=== PATIENT | male | born 1935 | race Caucasian/White ===

== ENCOUNTER 2020-06-23 14:51 | Outpatient (CLI) | payer MEDICARE, SELFPAY ==
--- NOTE | 2020-06-28 21:36 | WPDPFTINT ---
PFT Interpretation PFT Interpretation: DOS: 06/23/2020 REQUESTING: Dr. Jacob REASON FOR TESTING: Amiodarone use PULMONARY FUNCTION TESTS Results are not reproducible; patient did provide good effort however was not able to exhale 3 times for 6 seconds. Spirometry: FEV1 is 84%, normal. FVC 70%, mildly decreased. FEV1% is normal. No bronchodilator was given. Lung volumes: TLC 80%, lower limit of normal. There is no restriction, however this is the lowest normal value for total lung capacity. RV is normal, and RV/TLC is normal, indicating absence of air trapping. Airway resistance is increased 189%. Diffusion: DLCO Normal 96%. Flow volume loop: Not reproducible. IMPRESSION: Normal spirometry, lung volumes and diffusion. There does not appear to be any pulmonary deficit from using amiodarone. No prior studies are available for comparison. Yaritza Workman MD
== END 2020-06-23 14:52 | disposition home or self-care (01) ==
PROVIDERS: PCP Family Medicine Adolescent Medicine; Visit Provider Internal Medicine Cardiovascular Disease
DX: Z79.899 Other long term (current) drug therapy (principal)
CPT/HCPCS: 94375; 94726; 94729

== ENCOUNTER 2020-06-30 14:37 | Outpatient (CLI) | payer MEDICARE, SELFPAY ==
--- NOTE | ~2020-06-30 | XR_ITS ---
XR chest 2V DATE: 06/30/2020 15:20 INDICATION: Long-term amiodarone use TECHNIQUE: PA and lateral views COMPARISON: 11/22/2018 CT chest abdomen pelvis FINDINGS: Normal heart size. Aortic calcification. No hilar or mediastinal enlargement. No pulmona ry infiltrate or consolidation, pulmonary vascular congestion or pleural effusion or pneumothorax. IMPRESSION: No active cardiopulmonary disease Aortic calcification Reviewed, dictated and finalized at location A.
[2020-06-30 15:38] LABS: Alanine Aminotransferase 18 U/L (4-50); Albumin Level 4.5 g/dL (3.5-5.1); Alkaline Phosphatase 47 U/L (38-126); Anion Gap 12 mmol/L (8-16); Aspartate Amino Transferase 24 U/L (17-59); Blood Urea Nitrogen 16 mg/dL (9-20); Calcium 9.1 mg/dL (8.4-10.2); Carbon Dioxide 26 mmol/L (22-30); Chloride 100 mmol/L (98-107); Estimated Glomerular Filt Rate 49; Glucose 189 mg/dL (75-110); Potassium 3.5 mmol/L (3.4-5.0); Sodium 138 mmol/L (137-145)
[2020-06-30 16:44] LABS: Free T4 Free Thyroxine 1.11 ng/mL (0.78-2.19)
== END 2020-06-30 14:38 | disposition home or self-care (01) ==
PROVIDERS: PCP Family Medicine Adolescent Medicine; Visit Provider Internal Medicine Cardiovascular Disease
DX: Z79.899 Other long term (current) drug therapy (principal); I70.0 Atherosclerosis of aorta
CPT/HCPCS: 36415; 71046; 80053; 84439; 84443

== ENCOUNTER 2020-09-09 11:34 | Outpatient (CLI) | payer MEDICARE, SELFPAY ==
--- NOTE | ~2020-09-09 | XR_ITS ---
EXAMINATION: XR chest 2V DATE: 09/09/2020 11:55 INDICATION: Dysphonia. TECHNIQUE: Frontal and lateral views of the chest were obtained. COMPARISON: Chest 2 views 06/30/2020, chest CT 11/22/2018 FINDINGS: There is mild scarring at the lung apices. There are lucencies at the lung apices, consiste nt with emphysema. There is mild atelectasis in the lower lung zones. No pleural effusion or pneumoth orax. The heart size is normal. Calcified left hilar lymph nodes are consistent with old granulomatou s disease. Surgical clips in the right upper quadrant are likely from cholecystectomy. There is mild chronic anterior wedging of multiple thoracic vertebral bodies. IMPRESSION: 1. Mild scarring at the lung apices and mild atelectasis in the lower lung zones. 2. Emphysema. Reviewed, dictated and finalized at location A. IFIED HYPERBARIC TECHNICIAN IMPRESSION: 1. Mild scarring at the lung apices and mild atelectasis in the lower lung zone s. 2. Emphysema.
== END 2020-09-09 11:35 | disposition home or self-care (01) ==
LOC: ANHIMG 11:40
PROVIDERS: PCP Family Medicine Adolescent Medicine; Visit Provider Otolaryngology
DX: R49.0 Dysphonia (principal); J43.9 Emphysema, unspecified
CPT/HCPCS: 71046

== ENCOUNTER 2020-10-02 01:19 | Outpatient (CLI) | payer MEDICARE, SELFPAY ==
[2020-10-02 20:16] LABS: SARS-CoV-2 RNA PCR Negative
== END 2020-10-02 01:20 | disposition home or self-care (01) ==
LOC: ANHCOVIDDT 01:19
PROVIDERS: PCP Family Medicine Adolescent Medicine; Visit Provider Otolaryngology
DX: Z01.818 Encounter for other preprocedural examination (principal); Z20.828 Contact with and (suspected) exposure to other viral communicable diseases
CPT/HCPCS: 87635; C9803; U0003

== ENCOUNTER 2020-10-02 09:56 | Emergency (ER) | payer MEDICARE, SELFPAY ==
--- NOTE | ~2020-10-02 | CT_ITS ---
EXAMINATION: CT soft tissue neck chest w DATE: 10/02/2020 12:23 INDICATION: Pneumonia presenting with wheezing and hoarseness TECHNIQUE: Computed tomography (CT) of the neck and chest was performed with 75 mL Omnipaque-350 intr avenous contrast. Automated exposure control and iterative reconstruction technique were employed. Th e dose-length product was 1187.57 mGy-cm. COMPARISON: CT chest dated 11/22/2018 FINDINGS: Neck: Thyroid gland is normal. Submandibular and parotid glands are normal and symmetric. There are scatte red normal-sized lymph nodes in the neck, no lymphadenopathy. No masses identified. The vasculature is patent and normal in caliber. Airway is unremarkable. Normal epiglottis and parapharyngeal soft tissues. Changes of bilateral intraocular lens replacement. Orbits are unremarkable. Visualized sinu ses and mastoid aircells are well aerated. Severe cervical spondylosis. Chest: Mild paraseptal predominant emphysema with upper lung predominance. Biapical pleural-parenchymal scar ring. Mild dependent atelectasis in the lower lobes. Calcified bilateral lower lobe nodules and calci fied left hilar lymph nodes consistent with old granulomatous disease. No pneumonia, pulmonary edema, pleural effusion or pneumothorax. Heart size is normal. Atherosclerotic coronary artery calcific faraz cification is. Aortic valve and mitral annular calcification. No pericardial effusion. Thoracic aorta is normal in caliber with no dissection. No pathologically enlarged thoracic or upper abdominal lymp hadenopathy. Cholecystectomy clips at the gallbladder fossa. A couple ill-defined approximately 1 cm hyperenhancing lesions in segment 6 of the liver. These are not significantly changed since CT abdome n dated 09/28/2018 which would favor a benign etiology most likely flash filling hemangioma. Splenic c alcifications consistent with old granulomatous disease. A couple right renal cysts the larger measur ing 1.3 cm. Small sliding-type hiatal hernia. Moderate thoracic spondylosis. IMPRESSION: 1. Mild emphysema. No acute cardiopulmonary disease. 2. Severe cervical spondylosis. Otherwise unremarkable CT of the soft tissues of the neck. 3. Small sliding-type hiatal hernia. Reviewed, dictated and finalized at location A. NCIAL QUANTITATIVE ANALYST IMPRESSION: 1. Mild emphysema. No acute cardiopulmonary disease. 2. Severe cervical spondylosis. Otherwise unremarkable CT of the soft tissues o f the neck. 3. Small sliding-type hiatal hernia.
--- NOTE | ~2020-10-02 | XR_ITS ---
EXAMINATION: XR chest 1V portable DATE: 10/02/2020 11:04 INDICATION: Shortness of breath TECHNIQUE: frontal view of the chest was obtained. COMPARISON: Chest radiograph dated 09/09/[address] dated 11/22/2018 FINDINGS: Eventration along the right hemidiaphragm. Mild biapical pleural-parenchymal scarring. Mild emphysema which is better appreciated on prior CT. Pulmonary vascular congestion. Mild opacities in the left l ower lung zones. No pleural effusion or pneumothorax. The cardiomediastinal silhouette is normal. IMPRESSION: 1. Severe vascular congestion and mild opacities in the left lower lung zone which could represent mi ld pulmonary edema, atelectasis or pneumonia. 2. Mild emphysema. Reviewed, dictated and finalized at location A. DESIGN ENGINEER IMPRESSION: 1. Severe vascular congestion and mild opacities in the left lower lung zone wh ich could represent mild pulmonary edema, atelectasis or pneumonia. 2. Mild emphysema.
[2020-10-02 10:25] VITALS: BP 173/84; PULSE 76; RESP 18; TEMP 36.9; O2SAT 96
--- NOTE | 2020-10-02 10:49 | ED.SOB ---
HPI - SOB/Dyspnea General Chief Complaint: Shortness of Breath/Dyspnea Stated Complaint: abnormal breathing, SOB, Covid PUI Time Seen by Provider: 10/02/20 10:13 Source: patient Mode of arrival: EMS Limitations: other (Poor historian) History of Present Illness HPI Narrative: This is an 84-year-old male that presents the emergency department for abnormal breathing x2 days. Reportedly has history of chronic hoarseness for which he is getting a scope in a couple of days. Was swabbed as an outpatient for Covid today through [facility] in preparation for his scope. Patient's granddaughter brought him to the ED for abnormal breathing. Patient currently has no complaints. Denies fever, cough, chest pain, or shortness of breath. Related Data Home Medications Medication Instructions Recorded Confirmed amlodipine 2.5 mg tablet 2.5 mg PO DAILY 09/07/20 09/28/20 atorvastatin 20 mg tablet 20 mg PO DAILY 09/07/20 09/28/20 bupropion HCl 300 mg 24 hr tablet, 300 mg PO QAM 09/07/20 09/28/20 extended release cholecalciferol (vitamin D3) 125 125 mcg PO DAILY 09/07/20 09/28/20 mcg (5,000 unit) capsule ergocalciferol (vitamin D2) 1,250 1,250 mcg PO MONTHLY 09/07/20 09/28/20 mcg (50,000 unit) capsule metoprolol succinate 25 mg 25 mg PO DAILY 09/07/20 09/28/20 tablet,extended release 24 hr multivitamin,mz-kcbv-npitbipc 1 tablet PO DAILY 09/07/20 09/28/20 omeprazole 20 mg capsule,delayed 20 mg PO BID 09/07/20 09/28/20 release potassium citrate 10 mEq (1,080 10 meq PO QAM 09/07/20 09/28/20 mg) tablet,extended release rivaroxaban 20 mg tablet 20 mg PO DAILY 09/07/20 09/28/20 sertraline 50 mg tablet 50 mg PO QAM 09/07/20 09/28/20 tamsulosin 0.4 mg capsule 0.4 mg PO QAM 09/07/20 09/28/20 Allergies Allergy/AdvReac Type Severity Reaction Status Date / Time Sulfa (Sulfonamide Allergy Unknown rash Verified 10/02/20 10:46 Antibiotics) sulfanilamide Allergy Unknown rash Verified 10/02/20 10:46 Review of Systems Review of Systems: Narrative: CONSTITUTIONAL: Denies fever ENT: Denies rhinorrhea, congestion, sore throat CARDIOVASCULAR: Denies chest pain, or edema. RESPIRATORY: Denies cough or dyspnea. All systems reviewed & are unremarkable except as noted in HPI and below PMFSH Past Medical History Medical History (Updated 10/02/20 @ 14:37 by Dominga Younger PA-C) History of gastroesophageal reflux (GERD) History of hyperlipidemia History of hypertension Family History Family History (Updated 01/26/17 @ 09:06 by DOCTOR UNKNOWN) Other Diabetes mellitus Family history of cardiovascular disease Social History Social History (Updated 09/09/20 @ 10:37 by Elidia Hickman [facility]) Smoking status: Former smoker Second hand tobacco smoke exposure: No Smoking end date: 10/22/96 Additional smoking assessment comments: DAUGHTER STATES QUIT ABOUT 20YRS AGO Alcohol intake: current Substance use: never Additional living arrangements comments: LIVES WITH (ONEIL) AND SON Spiritual care concerns: No Exam Narrative: Exam Narrative: GENERAL: Well-appearing, well-nourished, and in no acute distress. HEAD: Normocephalic, atraumatic. EYES: EOMI. ENT: Nares clear, no rhinorrhea or epistaxis. Mucous membranes moist. Oropharynx without tonsillar hypertrophy exudate or other lesions. Bilateral TMs pearly lee non-bulging NECK: Supple. No adenopathy or masses. CHEST: No respiratory distress. Scattered wheezes throughout. No rales or rhonchi HEART: Regular rate and rhythm. No murmur heard. Normal peripheral pulses. EXTREMITIES: Normal range of motion. No edema. SKIN: Warm, dry, no rash. NEURO: No focal deficits. Alert and oriented x3. PSYCH: Normal mood and affect Course Vital Signs Vital signs: Vital Signs Temperature 98.5 F 10/02/20 10:25 Pulse Rate 76 10/02/20 10:25 Respiratory Rate 18 10/02/20 10:25 Blood Pressure 173/84 H 10/02/20 10:25 Pulse Oximetry 96 10/02/20 10:25 Tem
[2020-10-02 10:59] LABS: Basophils Percent Auto 0.2 % (0.2-1.2); Eosinophils Percent Auto 0.5 % (0-4.4); Hematocrit 35.2 % (42.0-52.0); Hemoglobin 12.1 g/dL (14.0-18.0); Immature Granulocyte Absolute 0.07 K/mm3 (0.00-0.031); Immature Granulocyte Percent A 1.1 % (0-0.5); Immature Platelet Fraction Pct 7.3 % (0.9-11.2); Lymphocytes Absolute Auto 1.86 K/mm3 (0.9-3.2); Lymphocytes Percent Auto 28.9 % (18.3-44.2); Mean Corpuscular HGB Conc 34.4 g/dl (32-36); Mean Corpuscular Hemoglobin 30.2 pg (26-34); Mean Corpuscular Volume 87.8 fl (80-100); Mean Platelet Volume 11.2 fl (7.4-10.4); Monocytes Absolute Auto 0.9 K/mm3 (0.1-0.6); Monocytes Percent Auto 14.1 % (2.6-8.5); Neutrophils Absolute Auto 3.6 K/mm3 (1.3-6.7); Neutrophils Percent Auto 55.2 % (45.5-73.1); Platelet Count Result 126 k/mm3 (150-375); Red Blood Count 4.01 M/mm3 (4.6-6.20); Red Cell Distribution Width 13.9 % (11.5-14.5); White Blood Count 6.4 K/mm3 (4.5-10.0)
[2020-10-02 11:11] LABS: Anion Gap 12 mmol/L (8-16); Blood Urea Nitrogen 19 mg/dL (9-20); Carbon Dioxide 30 mmol/L (22-30); Chloride 98 mmol/L (98-107); Estimated CRCL calculation 39 ml/min; Estimated Glomerular Filt Rate 53; Glucose 182 mg/dL (75-110); Potassium 3.7 mmol/L (3.4-5.0); Sodium 140 mmol/L (137-145)
[2020-10-02] MEDS: ALBUTEROL SULFATE (*SP) AEROSOL 1 PUFF 2 PUFF INHALATION ×2 (11:17→12:37)
[2020-10-02 11:25] VITALS: BP 174/77; PULSE 74; RESP 17; O2SAT 98
[2020-10-02 12:03] LABS: NT Pro B Type Natriuretic Pept 697 PG/ML (5-100)
[2020-10-02 12:30] VITALS: BP 136/88; PULSE 75; RESP 17; O2SAT 98
[2020-10-02] MEDS: ALBUTEROL SULFATE (*SP) AEROSOL 1 PUFF 4 PUFF INHALATION (13:28)
[2020-10-02] MEDS: methylPREDNISolone SOD SUCC 125 MG VIAL IV PUSH (13:56)
[2020-10-02 13:58] VITALS: PULSE 75; RESP 17; O2SAT 96
--- NOTE | 2020-10-02 14:14 | ECG_ITS ---
Measurements Intervals [place] Rate: 79 P: 81 TX: 183 QRS: 13 QRSD: 92 T: 60 QT: 376 QTc: 433 Interpretive Statements SINUS RHYTHM NONSPECIFIC ST & T-WAVE ABNORMALITY- HIGH LATERAL LEDS BASELINE ARTIFACT- I, II ,III, AVR, AVL, AVF, V3 BORDERLINE ECG Electronically Signed On 10-02-2020 14:40:35 ASSEMBLER CHASSIS by Pan Felipe D.O.
== END 2020-10-02 14:50 | disposition home or self-care (01) ==
PROVIDERS: Physician Assistant; Emergency Provider Emergency Medicine; PCP Family Medicine Adolescent Medicine
DX: J44.1 Chronic obstructive pulmonary disease with (acute) exacerbation (principal); R49.0 Dysphonia; Z87.891 Personal history of nicotine dependence; K21.9 Gastro-esophageal reflux disease without esophagitis; E78.5 Hyperlipidemia, unspecified; I10 Essential (primary) hypertension
CPT/HCPCS: 36415; 70491; 71045; 71260; 80048; 83880; 85025; 85055; 87635; 93005; 94640; 96374; 99284; A9270; C9803; J2930; Q9967; U0003

== ENCOUNTER 2020-10-05 01:47 | Day surgery (SDC) | payer MEDICARE, SELFPAY ==
[2020-09-28 09:07] VITALS: BMI 25.1
--- NOTE | 2020-10-04 10:23 | WPDANESEPPF ---
Anes - Initial Pre Proc Eval Procedure: Operation Date: 10/05/20 12:00 Proposed Procedures p Microlaryngoscopy With Biopsy - Jeronimo Sims MD Date/Time: 10/04/20 10:23 Surgeon: Jeronimo Sims MD Pre Op Diagnosis: Chronic Hoarseness Patient Data Age: 84 Gender: M Height: 1.75 m Weight: 77.27 kg Allergies Allergy/AdvReac Type Severity Reaction Status Date / Time Sulfa (Sulfonamide Allergy Unknown rash Verified 10/02/20 10:46 Antibiotics) sulfanilamide Allergy Unknown rash Verified 10/02/20 10:46 Home Medications Medication Instructions Recorded Confirmed Type amlodipine 2.5 mg tablet 2.5 mg PO DAILY 09/07/20 09/28/20 History atorvastatin 20 mg tablet 20 mg PO DAILY 09/07/20 09/28/20 History bupropion HCl 300 mg 24 hr tablet, 300 mg PO QAM 09/07/20 09/28/20 History extended release cholecalciferol (vitamin D3) 125 125 mcg PO DAILY 09/07/20 09/28/20 History mcg (5,000 unit) capsule ergocalciferol (vitamin D2) 1,250 1,250 mcg PO MONTHLY 09/07/20 09/28/20 History mcg (50,000 unit) capsule metoprolol succinate 25 mg 25 mg PO DAILY 09/07/20 09/28/20 History tablet,extended release 24 hr multivitamin,hu-qbtg-vkuunkdj 1 tablet PO DAILY 09/07/20 09/28/20 History omeprazole 20 mg capsule,delayed 20 mg PO BID 09/07/20 09/28/20 History release potassium citrate 10 mEq (1,080 10 meq PO QAM 09/07/20 09/28/20 History mg) tablet,extended release rivaroxaban 20 mg tablet 20 mg PO DAILY 09/07/20 09/28/20 History sertraline 50 mg tablet 50 mg PO QAM 09/07/20 09/28/20 History tamsulosin 0.4 mg capsule 0.4 mg PO QAM 09/07/20 09/28/20 History cefdinir 300 mg PO Q12H 5 Days #10 cap 10/02/20 Rx prednisone 40 mg PO DAILY 4 Days #8 tablet 10/02/20 Rx Patient hx anesthesia problems: none Family hx anesthesia problems: none PMFSH Past Medical History Medical History (Updated 10/04/20 @ 10:24 by Migue Nunez, ) Atrial fibrillation COPD (chronic obstructive pulmonary disease) mild Diabetes type 2, controlled History of gastroesophageal reflux (GERD) History of hyperlipidemia History of hypertension History of pancreatitis 10/2018 Family History Family History (Updated 01/26/17 @ 09:06 by DOCTOR UNKNOWN) Other Diabetes mellitus Family history of cardiovascular disease Social History Social History (Updated 09/09/20 @ 10:37 by Elidia iHckman CMA) Smoking status: Former smoker Second hand tobacco smoke exposure: No Smoking end date: 10/22/96 Additional smoking assessment comments: DAUGHTER STATES QUIT ABOUT 20YRS AGO Alcohol intake: current Substance use: never Living arrangements: with family Additional living arrangements comments: LIVES WITH (ONEIL) AND SON Spiritual care concerns: No Anes - Eval Final PreProcedure Day of Procedure 10/04/20 10:23 Patient weight: overweight Heart: regular rate and rhythm Lungs: clear to auscultation and normal air movement Airway: Mallampati scale class III Neurological: alert and oriented Last oral intake: >/= 8 hours ASA classification: III Emergent: no Anesthetic plan: proceed Anesthesia type and monitoring: general ETT and standard monitoring Informed Consent: The patient's anesthetic plan and its attendant risks and benefits were discussed with the patient/family/POA. Questions were solicited and answers provided to the satisfaction of the patient/family/POA.
[2020-10-05] VITALS (7 sets, daily range): BP systolic 133–166; BP diastolic 59–92; PULSE 75–83; RESP 13–20; TEMP 36.1–36.6; O2SAT 93–99
--- NOTE | 2020-10-05 06:16 | PM.HPGS ---
History of Present Illness History of Present Illness Consent: Risks, benefits, and alternatives have been discussed and questions answered. Patient agrees to proceed with procedure. Chief complaint: Chronic Hoarseness Narrative: Rafi Almanza is a 84 year old male a long history of COPD and recently hoarseness he was unable to be examined in the office he is brought to the operating room for laryngoscopy to evaluate his vocal cords Review of Systems Review of Systems: All systems reviewed & are unremarkable except as noted in HPI and below PMFSH Past Medical History Medical History (Updated 10/04/20 @ 10:24 by Migue Nunez, DO) Atrial fibrillation COPD (chronic obstructive pulmonary disease) mild Diabetes type 2, controlled History of gastroesophageal reflux (GERD) History of hyperlipidemia History of hypertension History of pancreatitis 10/2018 Family History Family History (Updated 01/26/17 @ 09:06 by DOCTOR UNKNOWN) Other Diabetes mellitus Family history of cardiovascular disease Social History Social History (Updated 09/09/20 @ 10:37 by Elidia Hickman, RADIATION THERAPY TECHNICIAN) Smoking status: Former smoker Second hand tobacco smoke exposure: No Smoking end date: 10/22/96 Additional smoking assessment comments: DAUGHTER STATES QUIT ABOUT 20YRS AGO Alcohol intake: current Substance use: never Living arrangements: with family Additional living arrangements comments: LIVES WITH (ONEIL) AND SON Spiritual care concerns: No Meds Home Medications and Allergies Home Medications Medication Instructions Recorded Confirmed Type amlodipine 2.5 mg tablet 2.5 mg PO DAILY 09/07/20 09/28/20 History atorvastatin 20 mg tablet 20 mg PO DAILY 09/07/20 09/28/20 History bupropion HCl 300 mg 24 hr tablet, 300 mg PO QAM 09/07/20 09/28/20 History extended release cholecalciferol (vitamin D3) 125 125 mcg PO DAILY 09/07/20 09/28/20 History mcg (5,000 unit) capsule ergocalciferol (vitamin D2) 1,250 1,250 mcg PO MONTHLY 09/07/20 09/28/20 History mcg (50,000 unit) capsule metoprolol succinate 25 mg 25 mg PO DAILY 09/07/20 09/28/20 History tablet,extended release 24 hr multivitamin,ur-tkqi-kslzdwsy 1 tablet PO DAILY 09/07/20 09/28/20 History omeprazole 20 mg capsule,delayed 20 mg PO BID 09/07/20 09/28/20 History release potassium citrate 10 mEq (1,080 10 meq PO QAM 09/07/20 09/28/20 History mg) tablet,extended release rivaroxaban 20 mg tablet 20 mg PO DAILY 09/07/20 09/28/20 History sertraline 50 mg tablet 50 mg PO QAM 09/07/20 09/28/20 History tamsulosin 0.4 mg capsule 0.4 mg PO QAM 09/07/20 09/28/20 History cefdinir 300 mg PO Q12H 5 Days #10 cap 10/02/20 Rx prednisone 40 mg PO DAILY 4 Days #8 tablet 10/02/20 Rx Allergies Allergy/AdvReac Type Severity Reaction Status Date / Time Sulfa (Sulfonamide Allergy Unknown rash Verified 10/02/20 10:46 Antibiotics) sulfanilamide Allergy Unknown rash Verified 10/02/20 10:46 Assessment and Plan Additional Plan Plan is to do a laryngoscopy to evaluate his vocal cords a possible biopsy
--- NOTE | 2020-10-05 06:18 | WPDHPUPDATE1 ---
History and Physical Update Update Date/Time: 10/05/20 06:18 History and Physical has been reviewed, including an updated exam of the patient. There are NO changes in the patient's condition. Risks, benefits, and alternatives have been discussed and questions answered. Patient agrees to proceed with procedure.
[2020-10-05] MEDS: LACTATED RINGERS 1,000 ML 30 ML IV CONT (11:10)
--- NOTE | 2020-10-05 13:13 | PM.PROC ---
Procedure Note - Detailed Date of procedure: 10/05/20 Pre-op diagnosis: Chronic Hoarseness Procedure performed: Direct laryngoscopy Description of procedure: Reason for internal esthesia the glide scope was introduced level of glottis the cords were irritated there was a questionable lesion underneath the cord but no biopsy could be obtained a CT scan will be necessary Anesthesia: GLMA Surgeon: Jeronimo Sims MD Estimated blood loss (mL): 0 Drains: No Packing: No Pathology: none sent Condition: stable Disposition: PACU Findings: Irritated vocal cord
--- NOTE | 2020-10-05 18:16 | SUR.PHASEII ---
talked with pt daughter edita about dr bruce wanting her to call his office tomorrow for further plan.
== END 2020-10-05 15:00 | disposition home health service (06) ==
PROVIDERS: PCP Family Medicine Adolescent Medicine; Visit Provider Otolaryngology
PROC: 0CJS8ZZ Inspection of Larynx, Via Natural or Artificial Opening Endoscopic (ICD-10-PCS; CPT 31575; principal; 2020-10-05 12:00)
DX: R49.0 Dysphonia (principal); I48.91 Unspecified atrial fibrillation; J44.9 Chronic obstructive pulmonary disease, unspecified; E11.9 Type 2 diabetes mellitus without complications; K21.9 Gastro-esophageal reflux disease without esophagitis; I10 Essential (primary) hypertension; E78.5 Hyperlipidemia, unspecified; Z79.01 Long term (current) use of anticoagulants; Z87.891 Personal history of nicotine dependence
CPT/HCPCS: 31525; A9270; J0330; J1100; J2405; J2704; J3010; J7120

== ENCOUNTER 2020-10-31 08:25 | Emergency (ER) | payer MEDICARE, SELFPAY ==
[2020-10-31] VITALS (9 sets, daily range): BP systolic 141–199; BP diastolic 75–89; PULSE 80–98; RESP 18–20; TEMP 36.6; O2SAT 92–96
--- NOTE | ~2020-10-31 | XR_ITS ---
XR chest 1V portable 10/31/2020 08:47 Indication: Shortness of breath. Procedure: AP portable chest Comparison: Comparison to multiple prior studies sequentially, with oldest reviewed study dated 11/18. Findings: Borderline heart size. No focal air space disease, pulmonary edema, pleural effusion or sammi pected pneumothorax. There is a tracheostomy tube present. No acute osseous abnormality. Impression: 1: No acute cardiopulmonary disease. Reviewed, dictated and finalized at location A. TRAINER OPERATOR Impression: 1: No acute cardiopulmonary disease.
--- NOTE | ~2020-10-31 | CT_ITS ---
EXAMINATION: CTA chest PE protocol DATE: 10/31/2020 13:58 OVERCOIL STEPPER INDICATION: Shortness of breath TECHNIQUE: Computed tomographic angiography (CTA) of the chest was performed with 100 mL Omnipaque-35 0 intravenous contrast. The dose-length product was 301.79 mGy-cm. Maximum intensity projection 3D-re constructions of the aorta and other arteries were constructed by the technologist on a separate work station. Automated exposure control and iterative reconstruction technique were employed. COMPARISON: CT dated 11/22/2018. FINDINGS: There is bibasilar dependent atelectasis. There is an endotracheal tube present. No signifi cant pleural or pericardial effusion. Study limited by motion artifact for evaluation of peripheral pulmonary embolism. No large central pu lmonary embolism. No evidence for aortic aneurysm or dissection. Cardiomegaly. Severe emphysema. No p neumothorax. Small hiatal hernia. No thoracic lymphadenopathy. IMPRESSION: 1. No large central pulmonary embolism. Evaluation of peripheral pulmonary arteries limited by motion . 2: Severe emphysema. 3: Dependent atelectasis. Cannot exclude superimposed pneumonia. 4: Cardiomegaly. Reviewed, dictated and finalized at location A. COIL STEPPER IMPRESSION: 1. No large central pulmonary embolism. Evaluation of peripheral pulmonary paloma lesly limited by motion. 2: Severe emphysema. 3: Dependent atelectasis. Cannot exclude superimposed pneumonia. 4: Cardiomegaly.
--- NOTE | 2020-10-31 09:11 | ED.GENADULT ---
HPI - General Adult General Chief complaint: Shortness of Breath/Dyspnea Stated complaint: problems with trach Time Seen by Provider: 10/31/20 08:41 Source: patient and family History of Present Illness HPI narrative: Patient is a 85 y/o male complaining of moderate SOB starting prior to arrival. His sister noticed that his trach is sticking out more than usual. Of note, he had Tracheostomy at [facility] on 10/13/20 for vocal cord dysfunction. He states that he has history of COPD. Related Data Home Medications Medication Instructions Recorded Confirmed amlodipine 2.5 mg tablet 2.5 mg PO DAILY 09/07/20 09/28/20 atorvastatin 20 mg tablet 20 mg PO DAILY 09/07/20 09/28/20 bupropion HCl 300 mg 24 hr tablet, 300 mg PO QAM 09/07/20 09/28/20 extended release cholecalciferol (vitamin D3) 125 125 mcg PO DAILY 09/07/20 09/28/20 mcg (5,000 unit) capsule ergocalciferol (vitamin D2) 1,250 1,250 mcg PO MONTHLY 09/07/20 09/28/20 mcg (50,000 unit) capsule metoprolol succinate 25 mg 25 mg PO DAILY 09/07/20 10/05/20 tablet,extended release 24 hr multivitamin,es-uqmy-xglhnmcb 1 tablet PO DAILY 09/07/20 10/05/20 omeprazole 20 mg capsule,delayed 20 mg PO BID 09/07/20 10/05/20 release potassium citrate 10 mEq (1,080 10 meq PO QAM 09/07/20 10/05/20 mg) tablet,extended release rivaroxaban 20 mg tablet 20 mg PO DAILY 09/07/20 10/05/20 sertraline 50 mg tablet 50 mg PO QAM 09/07/20 10/05/20 tamsulosin 0.4 mg capsule 0.4 mg PO QAM 09/07/20 10/05/20 Allergies Allergy/AdvReac Type Severity Reaction Status Date / Time Sulfa (Sulfonamide Allergy Unknown rash Verified 10/31/20 08:34 Antibiotics) sulfanilamide Allergy Unknown rash Verified 10/31/20 08:34 Review of Systems Constitutional: Constitutional: Denies chills, Denies fever(s), Denies headache(s) and Denies weakness Eyes: Eyes: Denies blurry vision ENT: Denies headache(s) and Denies neck pain Cardiovascular: Cardiovascular: Denies chest pain and Reports dyspnea Respiratory: Respiratory: Denies cough and Reports dyspnea Gastrointestinal: Gastrointestinal: Denies abdominal pain, Denies diarrhea, Denies nausea and Denies vomiting Genitourinary: Genitourinary: Denies hematuria and Denies dysuria Musculoskeletal: Musculoskeletal: Denies back pain and Denies neck pain Neurologic: Denies headache(s) and Denies weakness [facility] Past Medical History Medical History (Updated 10/31/20 @ 14:12 by Nimo Landry MD) Atrial fibrillation COPD (chronic obstructive pulmonary disease) mild Diabetes type 2, controlled History of gastroesophageal reflux (GERD) History of hyperlipidemia History of hypertension History of pancreatitis 10/2018 Family History Family History (Updated 01/26/17 @ 09:06 by DOCTOR UNKNOWN) Other Diabetes mellitus Family history of cardiovascular disease Social History Social History (Updated 09/09/20 @ 10:37 by Elidia Hickman [facility]) Smoking status: Former smoker Second hand tobacco smoke exposure: No Smoking end date: 10/22/96 Additional smoking assessment comments: DAUGHTER STATES QUIT ABOUT 20YRS AGO Alcohol intake: current Substance use: never Additional living arrangements comments: LIVES WITH (ONEIL) AND SON Spiritual care concerns: No Exam Const: General: no acute distress and well developed Orientation/consciousness: oriented to person, oriented to place, oriented to time and patient oriented x3 HENMT: Head: normocephalic Ears: external ears normal General nose exam: Normal external nose present Eyes: General: appearance normal, both eyes and all related structures Conjunctivae: conjunctivae normal Neck: Neck: normal visual inspection, full ROM and other (Trach in place. It appears dislodged, unable to pass suction catheter) Chest: Chest palpation & inspection: normal inspection of the chest and no tenderness Resp: Effort & Inspection: normal respiratory effort Auscultation: clear t
[2020-10-31 10:34] LABS: Basophils Percent Auto 0.1 % (0.2-1.2); Eosinophils Percent Auto 0.2 % (0-4.4); Hematocrit 27.6 % (42.0-52.0); Hemoglobin 9.4 g/dL (14.0-18.0); Immature Granulocyte Absolute 0.14 K/mm3 (0.00-0.031); Immature Granulocyte Percent A 1.5 % (0-0.5); Lymphocytes Absolute Auto 1.21 K/mm3 (0.9-3.2); Lymphocytes Percent Auto 12.9 % (18.3-44.2); Mean Corpuscular HGB Conc 34.1 g/dl (32-36); Mean Corpuscular Hemoglobin 29.6 pg (26-34); Mean Corpuscular Volume 86.8 fl (80-100); Monocytes Absolute Auto 1.6 K/mm3 (0.1-0.6); Monocytes Percent Auto 16.7 % (2.6-8.5); Neutrophils Absolute Auto 6.4 K/mm3 (1.3-6.7); Neutrophils Percent Auto 68.6 % (45.5-73.1); Platelet Count Result 215 k/mm3 (150-375); Red Blood Count 3.18 M/mm3 (4.6-6.20); Red Cell Distribution Width 13.5 % (11.5-14.5); White Blood Count 9.4 K/mm3 (4.5-10.0)
[2020-10-31 10:34] LABS: Alveolar/Arterial O2 Gradient 40.5 mmHg; Base Excess ABG 3.1 mEq/l (+/-2.0); Device ROOM AIR; Fractional Inspired Oxygen 21 %; HCO3 ABG 27.2 mEq/l (22.0-26.0); Modified Allen's Test Pass; Oxygen Content ABG 13.3 %vol (16.0-22.0); Oxygen Saturation ABG 92.8 % (95.0-100.0); Oxyhemoglobin 90.6 % THb (90.0-100.0); PCO2 ABG 39.6 mmHg (35.0-45.0); PO2 ABG 61.8 mmHg (80.0-100.0); PO2 FiO2 Ratio Arterial Blood 2.94 %; Site Drawn LEFT RADIAL; Total Hemoglobin 10.4 g/dL (12.0-18.0); pH ABG 7.454 (7.350-7.450)
[2020-10-31 10:46] LABS: Anion Gap 9 mmol/L (8-16); Blood Urea Nitrogen 11 mg/dL (9-20); Calcium 8.9 mg/dL (8.4-10.2); Carbon Dioxide 28 mmol/L (22-30); Chloride 100 mmol/L (98-107); Estimated Glomerular Filt Rate 58; Glucose 128 mg/dL (75-110); Potassium 3.9 mmol/L (3.4-5.0); Sodium 137 mmol/L (137-145)
[2020-10-31 11:41] LABS: D Dimer 1.72 ug/mL (<0.48)
== END 2020-10-31 14:48 | disposition home or self-care (01) ==
PROVIDERS: Emergency Provider Emergency Medicine; PCP Family Medicine Adolescent Medicine
DX: J95.03 Malfunction of tracheostomy stoma (principal); J44.9 Chronic obstructive pulmonary disease, unspecified; I48.91 Unspecified atrial fibrillation; Z79.01 Long term (current) use of anticoagulants; E11.9 Type 2 diabetes mellitus without complications; K21.9 Gastro-esophageal reflux disease without esophagitis; E78.5 Hyperlipidemia, unspecified; I10 Essential (primary) hypertension; Z87.891 Personal history of nicotine dependence; J38.02 Paralysis of vocal cords and larynx, bilateral; I51.7 Cardiomegaly; R91.8 Other nonspecific abnormal finding of lung field
CPT/HCPCS: 31502; 36415; 36600; 71045; 71275; 80048; 82805; 85025; 85380; 99284; Q9967

== ENCOUNTER 2021-01-14 09:59 | Emergency (ER) | payer MEDICARE, SELFPAY ==
--- NOTE | ~2021-01-14 | XR_ITS ---
XR chest 1V portable DATE: 01/14/2021 11:07 INDICATION: Dyspnea TECHNIQUE: Portable AP chest on 01/14/2021 1109 hours COMPARISON: 10/31/2020 CT pulmonary scan 10/31/2020 portable AP chest FINDINGS: A tracheostomy tube is in appropriate position. Mild infiltrate or atelectasis in both lower lung zones. No pleural effusion or pulmonary vascular co ngestion or pneumothorax. No hilar or mediastinal enlargement is evident. IMPRESSION: Tracheostomy in satisfactory position Mild infiltrate or atelectasis in the lower lung zones Reviewed, dictated and finalized at location A.
[2021-01-14 09:58] VITALS: BP 182/96; PULSE 115; RESP 25; TEMP 36.6; O2SAT 100
--- NOTE | 2021-01-14 10:07 | PC.NURSE ---
pt arrived from assisted living with ems providing bag/mask ventilations. per crew, pt reported his trach has been out since approx. midnight, for about 10 hours. ems reports unable to visualize stoma and 5 et tube inserted and pt bagged en route. O2 sats to 92%. 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 RT and MD able to reinsert trach at bedside. family arrived at bedside.
[2021-01-14 10:10] VITALS: PULSE 108
[2021-01-14 10:13] VITALS: BP 182/96; PULSE 106; RESP 22; O2SAT 98
--- NOTE | 2021-01-14 10:19 | ECG_ITS ---
Measurements Intervals [place] Rate: 101 P: -56 SD: 119 QRS: 6 QRSD: 89 T: 71 QT: 346 QTc: 448 Interpretive Statements SINUS TACHYCARDIA EARLY PRECORDIAL R/S TRANSITION BORDERLINE ST-T WAVE ABNORMALITY- ANTEROLAT/HIGH LAT LEADS BASELINE ARTIFACT- I, II, III, AVR, AVL,A VF, V1, V5-V6 BORDERLINE ECG Electronically Signed On 01-14-2021 10:28:55 CDT by Pan Felipe D.O.
[2021-01-14 10:32] VITALS: BP 96/59; PULSE 95; RESP 18; O2SAT 100
[2021-01-14 10:34] LABS: Eosinophils Percent Auto 0.3 % (0-4.4); Hematocrit 30.4 % (42.0-52.0); Hemoglobin 10.2 g/dL (14.0-18.0); Immature Granulocyte Absolute 0.06 K/mm3 (0.00-0.031); Immature Granulocyte Percent A 0.9 % (0-0.5); Lymphocytes Absolute Auto 1.83 K/mm3 (0.9-3.2); Lymphocytes Percent Auto 28.7 % (18.3-44.2); Mean Corpuscular HGB Conc 33.6 g/dl (32-36); Mean Corpuscular Volume 86.4 fl (80-100); Mean Platelet Volume 10.5 fl (7.4-10.4); Monocytes Absolute Auto 0.6 K/mm3 (0.1-0.6); Monocytes Percent Auto 9.1 % (2.6-8.5); Neutrophils Absolute Auto 3.9 K/mm3 (1.3-6.7); Platelet Count Result 176 k/mm3 (150-375); Red Blood Count 3.52 M/mm3 (4.6-6.20); Red Cell Distribution Width 15.5 % (11.5-14.5); White Blood Count 6.4 K/mm3 (4.5-10.0)
[2021-01-14 10:47] LABS: Alanine Aminotransferase 17 U/L (4-50); Albumin Level 4.4 g/dL (3.5-5.1); Alkaline Phosphatase 73 U/L (38-126); Anion Gap 11 mmol/L (8-16); Aspartate Amino Transferase 29 U/L (17-59); Bilirubin,Total 0.9 mg/dL (0.2-1.3); Blood Urea Nitrogen 17 mg/dL (9-20); Calcium 9.4 mg/dL (8.4-10.2); Carbon Dioxide 29 mmol/L (22-30); Chloride 101 mmol/L (98-107); Estimated CRCL calculation 42 ml/min; Estimated Glomerular Filt Rate > 60; Glucose 172 mg/dL (75-110); Potassium 4.6 mmol/L (3.4-5.0); Sodium 141 mmol/L (137-145)
--- NOTE | 2021-01-14 10:52 | ED.SOB ---
HPI - SOB/Dyspnea General Chief Complaint: Shortness of Breath/Dyspnea Stated Complaint: diff breathing Source: RN notes reviewed History of Present Illness HPI Narrative: Patient presents to emergency department from [facility] for trach removal. Patient has had a trach for the past several months per the patient the trach has been removed last night but he did not told staff EMS arrived and the patient initially been satting 92% on room air when they got him into the vehicle and laid him down his he desatted into the 80s that time they attempted to replace the trach and unable to place and placed a 5 ET tube with BVM patient had no other complaints per the [facility] they had not attempted to replace the trach themselves Related Data Home Medications Medication Instructions Recorded Confirmed amlodipine 2.5 mg tablet 2.5 mg PO DAILY 09/07/20 09/28/20 atorvastatin 20 mg tablet 20 mg PO DAILY 09/07/20 09/28/20 bupropion HCl 300 mg 24 hr tablet, 300 mg PO QAM 09/07/20 09/28/20 extended release cholecalciferol (vitamin D3) 125 125 mcg PO DAILY 09/07/20 09/28/20 mcg (5,000 unit) capsule ergocalciferol (vitamin D2) 1,250 1,250 mcg PO MONTHLY 09/07/20 09/28/20 mcg (50,000 unit) capsule metoprolol succinate 25 mg 25 mg PO DAILY 09/07/20 10/05/20 tablet,extended release 24 hr multivitamin,ba-cnlu-tkpynmkp 1 tablet PO DAILY 09/07/20 10/05/20 omeprazole 20 mg capsule,delayed 20 mg PO BID 09/07/20 10/05/20 release potassium citrate 10 mEq (1,080 10 meq PO QAM 09/07/20 10/05/20 mg) tablet,extended release rivaroxaban 20 mg tablet 20 mg PO DAILY 09/07/20 10/05/20 sertraline 50 mg tablet 50 mg PO QAM 09/07/20 10/05/20 tamsulosin 0.4 mg capsule 0.4 mg PO QAM 09/07/20 10/05/20 Allergies Allergy/AdvReac Type Severity Reaction Status Date / Time Sulfa (Sulfonamide Allergy Unknown rash Verified 01/14/21 10:20 Antibiotics) Review of Systems Review of Systems: Narrative: Gen.: Denies fevers or chills ENT: Denies congestion Respiratory: Reports shortness of breath CV: Denies chest pain or palpitations GI: Denies abdominal pain nausea, emesis or diarrhea Musculoskeletal: Denies back pain or muscle pain Neuro: Denies numbness, tingling, weakness or focal weakness Skin: Denies rash Except as documented, all other systems reviewed and negative [facility] Past Medical History Medical History Atrial fibrillation COPD (chronic obstructive pulmonary disease) mild Diabetes type 2, controlled History of gastroesophageal reflux (GERD) History of hyperlipidemia History of hypertension History of pancreatitis 10/2018 Family History Family History (Updated 01/26/17 @ 09:06 by DOCTOR UNKNOWN) Other Diabetes mellitus Family history of cardiovascular disease Social History Social History Smoking status: Former smoker Second hand tobacco smoke exposure: No Smoking end date: 10/22/96 Additional smoking assessment comments: DAUGHTER STATES QUIT ABOUT 20YRS AGO Alcohol intake: current Substance use: never Additional living arrangements comments: LIVES WITH (ONEIL) AND SON Gender identity (if verbalized by the patient): Male Spiritual care concerns: No Exam Narrative: Exam Narrative: APPEARANCE: No acute distress, nontoxic, resting in bed EYES: EOMI HEENT: Normocephalic, atraumatic, OMM Neck: Tracheostomy present with size 5 ET tube present RESPIRATORY: No respiratory distress Clear to auscultation bilaterally with no rhonchi wheezing or rales. CARDIOVASCULAR: Regular rate and rhythm without murmurs rubs or gallops. ABDOMINAL: Soft, nontender, nondistended, no rebound or guarding MUSCULOSKELETAl: Moves all extremities. NEURO: Awake and alert. Following commands, able to shake head yes or no no focal deficits SKIN:: Warm, dry. No rashes lesions or abrasions PSYCHIATRIC: Mariaelena
[2021-01-14 11:17] VITALS: O2SAT 97
[2021-01-14 12:18] VITALS: BP 126/72; PULSE 85; RESP 19; O2SAT 98
[2021-01-14] MEDS: AMOXICILLIN/CLAVULANATE K 875-125 MG TAB 1 TABLET PO (12:24)
== END 2021-01-14 12:31 | disposition home or self-care (01) ==
PROVIDERS: Emergency Provider Emergency Medicine; PCP Nurse Practitioner Family
DX: Z43.0 Encounter for attention to tracheostomy (principal); I48.91 Unspecified atrial fibrillation; Z79.01 Long term (current) use of anticoagulants; J44.9 Chronic obstructive pulmonary disease, unspecified; E11.9 Type 2 diabetes mellitus without complications; K21.9 Gastro-esophageal reflux disease without esophagitis; E78.5 Hyperlipidemia, unspecified; I10 Essential (primary) hypertension; R00.0 Tachycardia, unspecified; R94.31 Abnormal electrocardiogram [ECG] [EKG]
CPT/HCPCS: 36415; 71045; 80053; 85025; 93005; 99284; A9270

== ENCOUNTER 2021-02-11 12:19 | Emergency (ER) | payer MEDICARE, SELFPAY ==
--- NOTE | ~2021-02-11 | XR_ITS ---
EXAMINATION: XR chest 1V DATE: 02/11/2021 12:52 INDICATION: Atrial fibrillation. Fall. TECHNIQUE: A single frontal view of the chest was obtained. COMPARISON: Chest single view 01/14/2021 FINDINGS: There is mild scarring at the lung apices. Calcified left lung nodules and calcified left h ilar lymph nodes are consistent with old granulomatous disease. No pleural effusion or pneumothorax. The heart size is normal. There is a tracheostomy tube in expected position. Surgical clips in the ri [facility] upper quadrant are likely from cholecystectomy. IMPRESSION: 1. Stable mild scarring at the lung apices. Reviewed, dictated and finalized at location B.
--- NOTE | ~2021-02-11 | CT_ITS ---
EXAMINATION: CT brain wo con DATE: 02/11/2021 12:42 INDICATION: Head injury. Fall. TECHNIQUE: Computed tomography (CT) of the head was performed without intravenous contrast. The mA wa s adjusted according to patient size. Iterative reconstruction technique was employed. The dose-lengt h product was 605.33 mGy-cm. COMPARISON: None FINDINGS: There are scattered areas of low attenuation in the cerebral white matter. There is symmetr ic malacia involving the globi pallidi bilaterally. There is no intracranial hemorrhage, acute infarc tion, or abnormal intracranial mass lesion. The ventricles are normal in size. There is mild mucosal thickening in the ethmoid sinuses. There are likely changes of ocular lens replacement surgeries. The mastoid air cells are normal. IMPRESSION: 1. 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 2. Moderate nonspecific cerebral white matter disease, which likely represents chronic small vessel i schemic disease. Reviewed, dictated and finalized at location B. IMPRESSION: 1. 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 2. Moderate nonspecific cerebral white matter disease, which likely represents chronic small vessel ischemic disease.
--- NOTE | ~2021-02-11 | CT_ITS ---
EXAMINATION: CT cervical spine wo con DATE: 02/11/2021 12:43 INDICATION: Fall with head injury TECHNIQUE: Computed tomography (CT) of the cervical spine was performed without intravenous contrast. Automated exposure control and iterative reconstruction technique were employed. The dose-length pro duct was 281.96 mGy-cm. COMPARISON: Neck CT dated 10/02/2020 FINDINGS: Alignment is normal. Anterior fusion at C5-C6. Chronic mild anterior wedging at C7. Unfused cervical vertebral body heights are normal. Moderate disc height loss at C3-C4. Mild disc height loss at C4-C5 and C6-C7. Small amount of atherosclerotic calcific lesion at the bilateral carotid bulbs. Atheroscl erotic calcific a cyst with approximately 50% stenosis at the left subclavian artery proximal to the takeoff of the left vertebral artery. Tracheostomy tube at the thoracic inlet. Mild paraseptal emphys svetlana and pleural parenchymal scarring at the bilateral apices. The following disc levels are specific ally discussed: C2-C3: Disc is mildly bulging. There is mild bilateral uncovertebral joint osteoarthritis. There is m ild left and moderate right facet joint osteoarthritis. There is no neural foraminal stenosis. There is no central canal stenosis. C3-C4: Posterior disc osteophyte complex. There is severe bilateral uncovertebral joint osteoarthriti s. There is moderate left and moderate to severe right facet joint osteoarthritis. There is mild left and mild to moderate right neural foraminal stenosis. There is mild central canal stenosis. C4-C5: Disc is mildly bulging. There is mild to moderate right and severe left uncovertebral joint os teoarthritis. There is moderate right and severe left facet joint osteoarthritis. There is mild right and moderate left neural foraminal stenosis. There is mild central canal stenosis. C5-C6: Posterior endplate osteophytes spanning the fused disc space and uncovertebral joints. There i s also fusion across the bilateral facet joints. There is moderate bilateral, right greater than left neural foraminal stenosis. There is mild central canal stenosis. C6-C7: Disc is mildly bulging. There is mild to moderate left and severe right uncovertebral joint os teoarthritis. There is severe bilateral facet joint osteoarthritis. There is mild left and moderate r ight neural foraminal stenosis. There is mild central canal stenosis. C7-T1: Disc is mildly bulging. There is mild bilateral uncovertebral joint osteoarthritis. There is s evere bilateral facet joint osteoarthritis. There is mild bilateral neural foraminal stenosis. There is minimal central canal stenosis. IMPRESSION: 1. Severe cervical spondylosis. No acute osseous abnormality. Reviewed, dictated and finalized at location A.
[2021-02-11 12:20] VITALS: BP 136/65; PULSE 82; RESP 20; TEMP 36.2; O2SAT 99
--- NOTE | 2021-02-11 12:21 | ECG_ITS ---
Measurements Intervals [place] Rate: 83 P: 96 AR: 177 QRS: 36 QRSD: 84 T: 74 QT: 365 QTc: 429 Interpretive Statements SINUS RHYTHM NORMAL ECG Electronically Signed On 02-11-2021 12:47:34 CDT by Pan Felipe D.O.
--- NOTE | 2021-02-11 12:24 | ED.FALL ---
HPI - Fall General Chief Complaint: Fall Stated Complaint: wellness Time Seen by Provider: 02/11/21 12:19 Source: patient, EMS and RN notes reviewed Mode of arrival: EMS Limitations: no limitations History of Present Illness HPI Narrative: Patient is 85 years old white male came from assisted living by ambulance because of a fall. Patient went to the bathroom to urinate, before getting to the toilet fell. Patient does not know why he fell. He denies any palpitation, lightheadedness, dizziness, headache, shortness of breath, chest pain, back pain, abdominal pain prior to the fall. Patient was able to get up on his own. Complaining of laceration left head. Patient denies any other injury. Patient denies loss of consciousness. Currently patient is asymptomatic. Unknown duration of last tetanus shot Related Data Home Medications Medication Instructions Recorded Confirmed amlodipine 2.5 mg tablet 2.5 mg PO DAILY 09/07/20 09/28/20 atorvastatin 20 mg tablet 20 mg PO DAILY 09/07/20 09/28/20 bupropion HCl 300 mg 24 hr tablet, 300 mg PO QAM 09/07/20 09/28/20 extended release cholecalciferol (vitamin D3) 125 125 mcg PO DAILY 09/07/20 09/28/20 mcg (5,000 unit) capsule ergocalciferol (vitamin D2) 1,250 1,250 mcg PO MONTHLY 09/07/20 09/28/20 mcg (50,000 unit) capsule metoprolol succinate 25 mg 25 mg PO DAILY 09/07/20 10/05/20 tablet,extended release 24 hr multivitamin,bj-falc-aceotcvo 1 tablet PO DAILY 09/07/20 10/05/20 omeprazole 20 mg capsule,delayed 20 mg PO BID 09/07/20 10/05/20 release potassium citrate 10 mEq (1,080 10 meq PO QAM 09/07/20 10/05/20 mg) tablet,extended release rivaroxaban 20 mg tablet 20 mg PO DAILY 09/07/20 10/05/20 sertraline 50 mg tablet 50 mg PO QAM 09/07/20 10/05/20 tamsulosin 0.4 mg capsule 0.4 mg PO QAM 09/07/20 10/05/20 guaifenesin 1,200 mg PO BID 02/11/21 metformin 1,000 mg PO DAILY 02/11/21 Allergies Allergy/AdvReac Type Severity Reaction Status Date / Time Sulfa (Sulfonamide Allergy Unknown rash Verified 02/11/21 12:39 Antibiotics) Review of Systems Review of Systems: Narrative: CONSTITUTIONAL: Denies fever, chills, or sweats. EYES: Denies visual changes, redness, or discharge. ENT: Denies rhinorrhea, congestion, sore throat, or otalgia. CARDIOVASCULAR: Denies chest pain, palpitations, or edema. RESPIRATORY: Denies cough or dyspnea. GASTROINTESTINAL: Denies abdominal pain, nausea, vomiting, or diarrhea. GENITOURINARY: Denies dysuria or hematuria. SKIN: Denies rash or itching. MUSCULOSKELETAL: Denies back pain, joint pain, or myalgia. NEUROLOGIC: Denies headache, numbness, or weakness. PSYCHIATRIC: Denies anxiety or depression. [facility] Past Medical History Medical History Atrial fibrillation COPD (chronic obstructive pulmonary disease) mild Diabetes type 2, controlled History of gastroesophageal reflux (GERD) History of hyperlipidemia History of hypertension History of pancreatitis 10/2018 Family History Family History Other Diabetes mellitus Family history of cardiovascular disease Social History Social History Smoking status: Former smoker Second hand tobacco smoke exposure: No Smoking end date: 10/22/96 Additional smoking assessment comments: DAUGHTER STATES QUIT ABOUT 20YRS AGO Alcohol intake: current Substance use: never Additional living arrangements comments: LIVES WITH (ONEIL) AND SON Gender identity (if verbalized by the patient): Male Spiritual care concerns: No Exam Narrative: Exam Narrative: General appearance: Well-developed, well-nourished Skin: Normal color Head: Normocephalic, 3 cm subcutaneous laceration left scalp. No active bleeding. Eyes: Clear conjunctiva ENT: Oropharynx normal, ears normal, nose normal, tracheostomy tube in place Neck: Supple, nontender
[2021-02-11 12:46] LABS: Basophils Percent Auto 0.1 % (0.2-1.2); Eosinophils Percent Auto 0.3 % (0-4.4); Hematocrit 33.4 % (42.0-52.0); Hemoglobin 10.6 g/dL (14.0-18.0); Immature Granulocyte Absolute 0.08 K/mm3 (0.00-0.031); Immature Granulocyte Percent A 0.9 % (0-0.5); Lymphocytes Absolute Auto 2.07 K/mm3 (0.9-3.2); Lymphocytes Percent Auto 23.6 % (18.3-44.2); Mean Corpuscular HGB Conc 31.7 g/dl (32-36); Mean Corpuscular Hemoglobin 28.5 pg (26-34); Mean Corpuscular Volume 89.8 fl (80-100); Mean Platelet Volume 10.8 fl (7.4-10.4); Monocytes Percent Auto 10.8 % (2.6-8.5); Neutrophils Absolute Auto 5.6 K/mm3 (1.3-6.7); Neutrophils Percent Auto 64.3 % (45.5-73.1); Platelet Count Result 172 k/mm3 (150-375); Red Blood Count 3.72 M/mm3 (4.6-6.20); Red Cell Distribution Width 15.2 % (11.5-14.5); White Blood Count 8.8 K/mm3 (4.5-10.0)
[2021-02-11 12:52] LABS: Alanine Aminotransferase 17 U/L (4-50); Albumin Level 4.3 g/dL (3.5-5.1); Alkaline Phosphatase 57 U/L (38-126); Anion Gap 14 mmol/L (8-16); Aspartate Amino Transferase 27 U/L (17-59); Bilirubin,Total 0.5 mg/dL (0.2-1.3); Blood Urea Nitrogen 16 mg/dL (9-20); Carbon Dioxide 23 mmol/L (22-30); Chloride 104 mmol/L (98-107); Estimated CRCL calculation 39 ml/min; Estimated Glomerular Filt Rate 53; Glucose 119 mg/dL (75-110); Potassium 4.1 mmol/L (3.4-5.0); Sodium 141 mmol/L (137-145)
[2021-02-11 12:54] VITALS: BP 135/73; PULSE 78
[2021-02-11 12:55] VITALS: BP 126/74; PULSE 82
[2021-02-11 12:56] VITALS: BP 117/71; PULSE 90
[2021-02-11] MEDS: TETANUS,DIPHTHERIA,AC PERTUSSIS ADULT (0.5 ML) BOOSTRIX IM (13:22)
--- NOTE | 2021-02-11 13:23 | PC.NURSE ---
Patient unable to urinate at this time, refusing straight cath. Dr. Fuentes notified.
[2021-02-11 13:24] VITALS: BP 133/77; PULSE 81; RESP 18; O2SAT 100
[2021-02-11 14:37] VITALS: BP 144/75; PULSE 76; RESP 18; O2SAT 99
[2021-02-11 22:23] LABS: Add Urine Microscopic? YES; Appearance Urine Cloudy (Clear); Bilirubin Urine 1+ (Negative); Blood Urine Negative (Negative); Color Urine Amber (Yellow); Glucose Urine UA Negative (Negative); Ketones Urine Negative (Negative); Leukocyte Esterase Ur Negative LEU/UL (Negative); Mucus Urine Rare /lpf; Nitrate Urine Negative (Negative); Protein Urine 2+ mg/dL (Negative); RBC Urine 0-2 /hpf (0-2); Specific Grav Ur 1.026 (1.001-1.035); Squamous Epithelial Cell Urine Rare /hpf (Few); Urobilinogen Urine Negative mg/dL (<2.0); WBC Urine 0-3 /hpf
== END 2021-02-11 16:52 ==
PROVIDERS: Emergency Provider Emergency Medicine; PCP Nurse Practitioner Family
DX: S01.01XA Laceration without foreign body of scalp, initial encounter (principal); Z23 Encounter for immunization; I48.91 Unspecified atrial fibrillation; E11.9 Type 2 diabetes mellitus without complications; J44.9 Chronic obstructive pulmonary disease, unspecified; K21.9 Gastro-esophageal reflux disease without esophagitis; E78.5 Hyperlipidemia, unspecified; I10 Essential (primary) hypertension; G93.89 Other specified disorders of brain; M47.812 Spondylosis without myelopathy or radiculopathy, cervical region; R90.82 White matter disease, unspecified; Z79.84 Long term (current) use of oral hypoglycemic drugs; Z87.891 Personal history of nicotine dependence; W18.30XA Fall on same level, unspecified, initial encounter; Z79.01 Long term (current) use of anticoagulants
CPT/HCPCS: 12001; 12002; 36415; 51701; 70450; 71045; 72125; 80053; 81001; 85025; 90471; 90715; 93005; 99284

== ENCOUNTER 2021-02-11 21:16 | Emergency (ER) | payer MEDICARE, SELFPAY ==
[2021-02-11 21:18] VITALS: BP 140/59; PULSE 92; RESP 20; TEMP 36.1; O2SAT 100
--- NOTE | 2021-02-11 21:50 | PC.NURSE ---
automation control technician holding pressure of wound for 20 mins
--- NOTE | 2021-02-11 22:12 | ED.GENADULT ---
HPI - General Adult General Chief complaint: Unspecified Stated complaint: head bleeding Time Seen by Provider: 02/11/21 22:12 Source: patient and family Limitations: no limitations History of Present Illness HPI narrative: Patient is 85 years old white male presented to the ED because of bleeding from scalp laceration. Patient was seen earlier today and had 3 [place], patient on Xarelto. Bleeding was stopped prior to discharge but somehow started back again. Patient's daughter is telling me that patient was able to urinate 1 hour prior to arrival to the emergency room and would like to check his urine to make sure is clean. Patient declined to have UA earlier today. Related Data Home Medications Medication Instructions Recorded Confirmed amlodipine 2.5 mg tablet 2.5 mg PO DAILY 09/07/20 09/28/20 atorvastatin 20 mg tablet 20 mg PO DAILY 09/07/20 09/28/20 bupropion HCl 300 mg 24 hr tablet, 300 mg PO QAM 09/07/20 09/28/20 extended release cholecalciferol (vitamin D3) 125 125 mcg PO DAILY 09/07/20 09/28/20 mcg (5,000 unit) capsule ergocalciferol (vitamin D2) 1,250 1,250 mcg PO MONTHLY 09/07/20 09/28/20 mcg (50,000 unit) capsule metoprolol succinate 25 mg 25 mg PO DAILY 09/07/20 10/05/20 tablet,extended release 24 hr multivitamin,yk-raeu-enopsicp 1 tablet PO DAILY 09/07/20 10/05/20 omeprazole 20 mg capsule,delayed 20 mg PO BID 09/07/20 10/05/20 release potassium citrate 10 mEq (1,080 10 meq PO QAM 09/07/20 10/05/20 mg) tablet,extended release rivaroxaban 20 mg tablet 20 mg PO DAILY 09/07/20 10/05/20 sertraline 50 mg tablet 50 mg PO QAM 09/07/20 10/05/20 tamsulosin 0.4 mg capsule 0.4 mg PO QAM 09/07/20 10/05/20 guaifenesin 1,200 mg PO BID 02/11/21 metformin 1,000 mg PO DAILY 02/11/21 Allergies Allergy/AdvReac Type Severity Reaction Status Date / Time Sulfa (Sulfonamide Allergy Unknown rash Verified 02/11/21 12:39 Antibiotics) Review of Systems Review of Systems: Narrative: CONSTITUTIONAL: Denies fever, chills, or sweats. EYES: Denies visual changes, redness, or discharge. ENT: Denies rhinorrhea, congestion, sore throat, or otalgia. CARDIOVASCULAR: Denies chest pain, palpitations, or edema. RESPIRATORY: Denies cough or dyspnea. GASTROINTESTINAL: Denies abdominal pain, nausea, vomiting, or diarrhea. GENITOURINARY: Denies dysuria or hematuria. SKIN: Denies rash or itching. MUSCULOSKELETAL: Denies back pain, joint pain, or myalgia. NEUROLOGIC: Denies headache, numbness, or weakness. PSYCHIATRIC: Denies anxiety or depression. [facility] Past Medical History Medical History Atrial fibrillation COPD (chronic obstructive pulmonary disease) mild Diabetes type 2, controlled History of gastroesophageal reflux (GERD) History of hyperlipidemia History of hypertension History of pancreatitis 10/2018 Family History Family History Other Diabetes mellitus Family history of cardiovascular disease Social History Social History Smoking status: Former smoker Second hand tobacco smoke exposure: No Smoking end date: 10/22/96 Additional smoking assessment comments: DAUGHTER STATES QUIT ABOUT 20YRS AGO Alcohol intake: current Substance use: never Additional living arrangements comments: LIVES WITH (ONEIL) AND SON Gender identity (if verbalized by the patient): Male Spiritual care concerns: No Exam Narrative: Exam Narrative: General appearance: Well-developed, well-nourished Skin: Normal color Head: Normocephalic, left forehead laceration is slightly oozing blood. Eyes: Clear conjunctiva ENT: Oropharynx normal, ears normal, nose normal tracheostomy tube in place Neck: Supple, nontender Chest and respiratory: Airway patent, no respiratory distress, no accessory muscle use Heart: Regular rate/rhythm Vascular: Normal peripheral pul
--- NOTE | 2021-02-11 22:17 | PC.NURSE ---
Wound wrapped in gauze and coban.
[2021-02-12 00:20] VITALS: BP 139/74; PULSE 80; RESP 16; O2SAT 100
== END 2021-02-12 00:20 ==
PROVIDERS: Emergency Provider Emergency Medicine; PCP Nurse Practitioner Family
DX: S01.01XA Laceration without foreign body of scalp, initial encounter (principal); I48.91 Unspecified atrial fibrillation; E11.9 Type 2 diabetes mellitus without complications; J44.9 Chronic obstructive pulmonary disease, unspecified; K21.9 Gastro-esophageal reflux disease without esophagitis; E78.5 Hyperlipidemia, unspecified; I10 Essential (primary) hypertension; Z79.01 Long term (current) use of anticoagulants; Z79.84 Long term (current) use of oral hypoglycemic drugs; Z87.891 Personal history of nicotine dependence; W19.XXXA Unspecified fall, initial encounter
CPT/HCPCS: 12001; 51701; 99283